=== PATIENT | female | born 1965 | race Caucasian/White ===

== ENCOUNTER → 2016-12-10 | Outpatient (CLI) | payer OTHER | LOC: MC.RAD 13:19 | DX: M25.562 Pain in left knee (principal); M79.662 Pain in left lower leg ==

== ENCOUNTER → 2017-01-13 | Outpatient (CLI) | payer OTHER | LOC: MC.RAD 13:09 | DX: Z12.31 Encounter for screening mammogram for malignant neoplasm of breast (principal) ==

== ENCOUNTER → 2018-01-26 | Outpatient (CLI) | payer OTHER | LOC: MC.RAD 14:50 | DX: Z12.31 Encounter for screening mammogram for malignant neoplasm of breast (principal) ==

== ENCOUNTER → 2019-02-15 | Outpatient (CLI) | payer OTHER | LOC: MC.RAD 13:30 | DX: Z12.31 Encounter for screening mammogram for malignant neoplasm of breast (principal) ==

== ENCOUNTER → 2020-02-17 | Outpatient (CLI) | payer OTHER | LOC: MC.RAD 15:17 | DX: Z12.31 Encounter for screening mammogram for malignant neoplasm of breast (principal) ==

== ENCOUNTER 2020-12-07 11:23 | Inpatient (IN) | payer OTHER ==
[~2020-12-07] VITALS: Ht 157.5 cm; Wt 51.6 kg
[2020-12-07] MEDS ORDERED: TESSALON PERLE200 MG PO (13:10)
[2020-12-07] MEDS ORDERED: ZOFRAN8 MG PO (13:10)
[2020-12-07] MEDS ORDERED: PEPCID 20MG TAB20 MG PO (13:11)
[2020-12-07] MEDS ORDERED: HCTZ12.5TAB PO (13:11)
[2020-12-07 14:25] LABS: BASO % 0.3 % (0.0-2.0); GRAN # 2.9 (1.4-6.5); GRAN % 75.6 % (42.2-75.2); HEMATOCRIT 39.4 % (37.0-47.0); HEMOGLOBIN 13.3 g/dl (12.5-16.0); LYMPH # 0.7 (1.2-3.4); LYMPH % 18.4 % (20.0-51.0); MEAN CELL VOLUME 86 fl (80.0-100.0); MEAN CORPUSCULAR HEMOGLOBIN 29 pg (27.0-31.0); MEAN CORPUSCULAR HGB CONC 34 g/dl (33.0-37.0); MEAN PLATELET VOLUME 9.4 fl (7.4-10.4); MONO # 0.2 (0.1-0.6); MONO % 5.2 % (1.7-9.3); PLATELET COUNT 165 K/mm3 (130-400); RED BLOOD COUNT 4.59 M/mm3 (4.10-5.30); REDCELL DISTRIBUTION WIDTH-CV 12.2 % (11.5-14.5)
[2020-12-07] MEDS ORDERED: PROMETHAZINE D118 ML PO (14:28)
[2020-12-07 14:40] LABS: ALBUMIN 3.9 gm/dL (3.5-5.0); BILIRUBIN,TOTAL 0.6 mg/dL (0.0-1.0); CALCIUM 9.2 mg/dL (8.4-10.2); CREATININE, serum 0.68 (0.52-1.25); POTASSIUM 3.6 mmol/L (3.4-5.0); TOTAL PROTEIN 6.8 gm/dL (6.4-8.2)
[2020-12-07 15:04] LABS: C-REACTIVE PROTEIN 5.7 mg/dL (0.0-0.9)
[2020-12-07 19:03] VITALS: BP 130/58; PULSE 89; TEMP 100.9
--- NOTE | 2020-12-07 20:00 | NUR ---
Assessment complete. Patient alert and oriented with no complaints of pain. Her temp is 100.9 at this time and 400 mg ibuprofen is administered. She is satting 88-90% on RA and is put on 1.5 liters 02 nasal cannula. She is now satting 93%. She states she has had diarrhea but is not nauseus at this time. Her chest xray and plan of care is reviewed. Comfort measures met and call light in reach.
[2020-12-08 01:08] VITALS: BP 135/60; PULSE 89; TEMP 101.2
[2020-12-08 04:00] VITALS: BP 112/57; PULSE 64; TEMP 97.4
[2020-12-08 07:15] LABS: GRAN # 1.5 (1.4-6.5); GRAN % 69.4 % (42.2-75.2); HEMOGLOBIN 11.8 g/dl (12.5-16.0); LYMPH # 0.5 (1.2-3.4); LYMPH % 23.9 % (20.0-51.0); MEAN CELL VOLUME 86 fl (80.0-100.0); MEAN CORPUSCULAR HEMOGLOBIN 29 pg (27.0-31.0); MEAN CORPUSCULAR HGB CONC 34 g/dl (33.0-37.0); MEAN PLATELET VOLUME 9.2 fl (7.4-10.4); MONO # 0.1 (0.1-0.6); MONO % 6.2 % (1.7-9.3); PLATELET COUNT 175 K/mm3 (130-400); RED BLOOD COUNT 4.05 M/mm3 (4.10-5.30); REDCELL DISTRIBUTION WIDTH-CV 12.2 % (11.5-14.5)
[2020-12-08 07:24] LABS: HEMATOCRIT 34.8 % (37.0-47.0)
[2020-12-08 07:26] LABS: ALBUMIN 3.1 gm/dL (3.5-5.0); BILIRUBIN,TOTAL 0.3 mg/dL (0.0-1.0); CALCIUM 8.7 mg/dL (8.4-10.2); CREATININE, serum 0.53 (0.52-1.25); POTASSIUM 3.5 mmol/L (3.4-5.0); TOTAL PROTEIN 5.5 gm/dL (6.4-8.2)
[2020-12-08 07:50] VITALS: BP 119/68; PULSE 61; TEMP 98.3
--- NOTE | 2020-12-08 09:45 | NUR ---
Patient resting in bed. Tolerated a light breakfast without nausea. Denies pain. Did request cough medication. given per orders. Spoke with ID . Orders obtained. Vss on room air, tele on. Will montior closely.
--- NOTE | 2020-12-08 10:11 | NUR ---
The patient is COVID positive. SW contacted the patient's room phone to discuss discharge plan. The patient lives alone in [place]. She states that her two daughters live nearby. She reports independence with ADLs and does not have any DME. The patient's PCP is Dr. Da Hatch and she receives her medications from the [facility] on [address] in . She reports no difficulties obtaining her meds. The patient does not have a DPOA-HC. She states that she is not and that she has two children: Trudy Newell (ph#[phone]) and Poppy. The patient plans to return home upon discharge. She is currently not requiring any oxygen. *Discharge plan: home*
[2020-12-08 11:15] VITALS: BP 118/65; PULSE 77; TEMP 98.6
--- NOTE | 2020-12-08 15:15 | NUR ---
Patient assisted back to bed, she sat up in chair for lunch. Had less of an appetite for lunch than she did for breakfast. She had requested cough medication, given per orders. Patient cough is frequent, but dry. She also reports some pain in her neck. Motrin per request. Patient provided with fresh linens on her bed. Offered shower & or warm wipes, no interest. She did stand at sink and brush her teeth. Up to bathroom independently. Miguel purvis.
[2020-12-08 17:29] VITALS: BP 124/67; PULSE 67; TEMP 98.4
--- NOTE | 2020-12-08 17:58 | NUR ---
Patient resting in bed. Having soup & crackers for dinner. Motrin assisted with pain. Her cough seems improved. Vitals remains stable. Tele on. Will monitor & report off to nightnurse
[2020-12-08 20:34] VITALS: BP 130/68; PULSE 96; TEMP 98.9
[2020-12-09 00:25] VITALS: BP 116/64; PULSE 69; TEMP 98.6
[2020-12-09 04:00] VITALS: BP 126/67; PULSE 76; TEMP 98.8
--- NOTE | 2020-12-09 04:06 | NUR ---
pt has been doing great but cough sometimes. pt sat at 91 on RA. mucinex was given. Will continue to monitor.
--- NOTE | 2020-12-09 06:45 | NUR ---
PT LAYING IN BED AT THIS TIME. DENIES ANY NEEDS AT THIS TIME. ORDERING BREAKFAST. CALL LIGHT WITHIN REACH, NO FURTHER CONCERNS.
[2020-12-09 09:00] VITALS: BP 104/53; PULSE 80; TEMP 98.3
[2020-12-09 16:04] VITALS: BP 131/73; PULSE 70; TEMP 98.2
--- NOTE | 2020-12-09 19:36 | NUR ---
PT HAD UNEVENTFUL DAY. NO CONCERNS. REMAINS ON 1L O2.
--- NOTE | 2020-12-09 21:36 | NUR ---
Pt is doing better. Pt looks more awake but still drowsy.will continue to monitor.
--- NOTE | 2020-12-09 21:44 | NUR ---
Pt is doing much better. Cough meds was provided. Pt is on 1 L of O2 sat at 92 . Will continue to monitor.
[2020-12-10 01:10] VITALS: BP 128/73; PULSE 67; TEMP 98.3
--- NOTE | 2020-12-10 02:05 | NUR ---
pt was on 1L of O2 sating at 91. Pt required more oxygen after desating to 76 on 1L after using the bothroom. Therefore pt is on 4 L of O2 sating at 92. Will continue to monitor.
[2020-12-10 04:00] VITALS: BP 128/56; PULSE 80; TEMP 98.2
--- NOTE | 2020-12-10 05:37 | NUR ---
PT HAS BEEN A LITTLE BIT BETTER BUT DOWN TO 3 L SATING AT 90.Will conitinue to monitor.
[2020-12-10 06:54] LABS: HEMOGLOBIN 10.9 g/dl (12.5-16.0); MEAN CELL VOLUME 89 fl (80.0-100.0); MEAN CORPUSCULAR HEMOGLOBIN 29 pg (27.0-31.0); MEAN CORPUSCULAR HGB CONC 32 g/dl (33.0-37.0); MEAN PLATELET VOLUME 9.3 fl (7.4-10.4); PLATELET COUNT 241 K/mm3 (130-400); RED BLOOD COUNT 3.76 M/mm3 (4.10-5.30); REDCELL DISTRIBUTION WIDTH-CV 13.1 % (11.5-14.5)
[2020-12-10 07:01] VITALS: BP 131/62; PULSE 75; TEMP 98
[2020-12-10 07:11] LABS: ALBUMIN 2.7 gm/dL (3.5-5.0); BILIRUBIN UNCONJUGATED 0.2 mg/dL (0.0-1.1); BILIRUBIN,TOTAL 0.2 mg/dL (0.0-1.0); CALCIUM 8.8 mg/dL (8.4-10.2); CREATININE, serum 0.5 (0.52-1.25); POTASSIUM 3.4 mmol/L (3.4-5.0)
[2020-12-10 07:20] LABS: HEMATOCRIT 33.6 % (37.0-47.0)
[2020-12-10 09:30] LABS: HYPOCHROMIA 1+; LYMPHOCYTE 9 % (20.0-51.0); NEUTROPHILS 87 % (42.0-75.2); PLATELET ESTIMATE NORMAL (NORMAL)
[2020-12-10 12:00] VITALS: BP 143/81; PULSE 67; TEMP 98
[2020-12-10 16:00] VITALS: BP 131/71; PULSE 75; TEMP 98.5
--- NOTE | 2020-12-10 18:52 | NUR ---
DURING BEDSIDE ROUNDING THE PATIENT WAS FEELING VERY SHORT OF BREATH. DURING ASSESSMENT THE PATIENT O2 SATS WERE 83%. WE INCREASED THE O2 NEEDS FROM 3L TO 4L AND THE PATIENT WAS UNABLE TO SAT ABOVE 86%. THE O2 WAS THEN INCREASED TO 6L AND THE PATIENT REMAINED AT 88-89%. RESPIRATORY THERAPY CAME TO THE ROOM WITH A HIGH FLOW NASAL CANNULA WELL A BUBBLER. THE PATIENT HAS REMAINED ON 8L TODAY. PT DID HAVE WHAT APPEARS TO BE BLOODY STOOLS. STOOL OCCULT HAS BEEN COLLECTED, AND IS PENDING. ID IS CONSULTED WELL PULMONARY. NO FURTHER CONCERNS AT THIS TIME.
[2020-12-10 20:00] VITALS: BP 134/71; PULSE 72; TEMP 98.4
[2020-12-10 20:07] LABS: HEMOGLOBIN 11.6 g/dl (12.5-16.0)
[2020-12-10 20:08] LABS: HEMATOCRIT 35.2 % (37.0-47.0)
--- NOTE | 2020-12-10 21:52 | NUR ---
ALERT AND OX4. DENIES SOA WHEN SETTING BUT WHEN UP AND MOVING O2 DROPS TO 85%. RETURNS TO 93% AFTER BACK TO BED. DENIES DIZZY OR CHEST PAIN. NO FEVER-VSS. PM MEDS GIVEN. POC DISCUSSED. IV FLUSHED. DAY SHIFT RN REPORT SEVERAL BLOODY STOOLS. OCCULT BLOOD SENT AND NEGATIVE. HEMOGLOBIN CHECKED AND IMPROVING. LOVENOX HELD PER ORDER. MONITORING.
[2020-12-11] VITALS (7 sets, daily range): BP systolic 118–154; BP diastolic 73–109; PULSE 67–104; TEMP 97.9–98.6
--- NOTE | 2020-12-11 04:30 | NUR ---
RESTED IN BED OVERNIGHT WITHOUT INCIDENT. REMAINS ON 8L HIGHFLOW. DESATS WITH STANDING TO COMMODE BUT CONT TO RETURN TO LOW 90S AFTER. NO REPORTS OF ANY STOOLS OVERNIGHT/NONE SEEN BY NURSE. ANTIBOTICS INFUSING THIS AM. NEEDS MET.
--- NOTE | 2020-12-11 05:44 | NUR ---
PT HAS SMALL LIQ BM THIS AM W BLOODY TINGE COLOR. DENIES LIGHTHEADED OR DIZZY. MONITORING
[2020-12-11 07:04] LABS: BASO % 0.2 % (0.0-2.0); GRAN # 4.6 (1.4-6.5); GRAN % 78.2 % (42.2-75.2); HEMOGLOBIN 11.4 g/dl (12.5-16.0); LYMPH # 0.6 (1.2-3.4); LYMPH % 9.6 % (20.0-51.0); MEAN CELL VOLUME 88 fl (80.0-100.0); MEAN CORPUSCULAR HEMOGLOBIN 29 pg (27.0-31.0); MEAN CORPUSCULAR HGB CONC 32 g/dl (33.0-37.0); MEAN PLATELET VOLUME 9.1 fl (7.4-10.4); MONO # 0.7 (0.1-0.6); PLATELET COUNT 270 K/mm3 (130-400)
[2020-12-11 07:05] LABS: HEMATOCRIT 35.2 % (37.0-47.0)
[2020-12-11 07:15] LABS: ALBUMIN 2.8 gm/dL (3.5-5.0); BILIRUBIN,TOTAL 0.4 mg/dL (0.0-1.0); CREATININE, serum 0.55 (0.52-1.25); POTASSIUM 3.4 mmol/L (3.4-5.0); TOTAL PROTEIN 5.1 gm/dL (6.4-8.2)
[2020-12-11 07:59] LABS: MAGNESIUM 2.4 mg/dL (1.6-2.3)
--- NOTE | 2020-12-11 09:09 | NUR ---
PT REMAINS DYSPNIC ON EXERTION. RT BUMPED PT UP TO 10L FOR RECOVERY AFTER TRANSFER FROM BED TO BEDSIDE COMMODE. AND THE PATIENT RECOVERED WITHIN 5 MINUTES. THIS RN REDUCED TO 8L FOR O2 AT 95%. PT RESTING O2 IS 93% ON 8L. WILL BUMP UP TO 10L FOR EXERTION. NO OTHER CONCERNS AT THIS TIME. CALL LIGHT WITHIN REACH.
--- NOTE | 2020-12-11 15:27 | NUR ---
Bone Char Operator spoke with RNFunmilayo who advised patient is now on 8 liters of oxygen. SW will continue to follow for oxygen needs.
--- NOTE | 2020-12-11 19:08 | NUR ---
Report given to DOMINIC Cobian.
--- NOTE | 2020-12-11 22:40 | NUR ---
Shift assessment completed. Patient A/O x4. Patient is currently on oxygen 5L via high flow NC. SPO2 92-94% on 5L high flow NC while at rest. Assisted patient to use bed-side commode per request. Patient reports she gets SOB and oxygen level desats when get up and moving around. Increased oxygen to 8L per patient request upon get up to use commode. Oxygen saturation remains 93-95% on 8L via high flow NC. Assisted patient back to bed and decreased oxygen level to 5L. Breathing even and unlabored while at rest. Patient denies N/V, diarrhea, headache, or dizziness. All scheduled meds given per SEP. PRN Cough meds given for non-productive dry cough. Call light within reach. Will continue to monitor.
[2020-12-12] VITALS (7 sets, daily range): BP systolic 131–154; BP diastolic 66–82; PULSE 63–98; TEMP 97.9–98.7
--- NOTE | 2020-12-12 07:31 | NUR ---
REPORT RCVD FROM DOMINIC CARDONA. PT IS CURRENTLY NAUSEATED, AND HAVING VERY LOOSE STOOLS. PT HAS REQUIRED MORE O2 DURING AMBULATION APPROXIMATELY 10L, BUT DOES RECOVER TO ONLY NEEDING 5L AT REST. PT REQUEST OF ZOFRAN. NO OTHER CONCERNS.
[2020-12-12 07:51] LABS: BASO % 0.1 % (0.0-2.0); GRAN # 6.4 (1.4-6.5); GRAN % 80.5 % (42.2-75.2); HEMATOCRIT 35.8 % (37.0-47.0); HEMOGLOBIN 11.7 g/dl (12.5-16.0); LYMPH # 0.7 (1.2-3.4); LYMPH % 9.2 % (20.0-51.0); MEAN CELL VOLUME 88 fl (80.0-100.0); MEAN CORPUSCULAR HEMOGLOBIN 29 pg (27.0-31.0); MEAN CORPUSCULAR HGB CONC 33 g/dl (33.0-37.0); MEAN PLATELET VOLUME 8.7 fl (7.4-10.4); MONO # 0.7 (0.1-0.6); MONO % 8.8 % (1.7-9.3); PLATELET COUNT 321 K/mm3 (130-400); RED BLOOD COUNT 4.08 M/mm3 (4.10-5.30); REDCELL DISTRIBUTION WIDTH-CV 12.8 % (11.5-14.5)
[2020-12-12 08:01] LABS: ALBUMIN 2.8 gm/dL (3.5-5.0); BILIRUBIN,TOTAL 0.6 mg/dL (0.0-1.0); CALCIUM 8.9 mg/dL (8.4-10.2); CREATININE, serum 0.54 (0.52-1.25); POTASSIUM 3.2 mmol/L (3.4-5.0); TOTAL PROTEIN 5.1 gm/dL (6.4-8.2)
--- NOTE | 2020-12-12 11:49 | NUR ---
PT HAVING DIFFICULTY WITH RECOVERY AFTER STANDING UP AND SITTING DOWN ON BEDSIDE COMMODE. THE PATIENT HAS A LOT OF ANXIETY ABOUT HER OXYGEN, AND WATCHES THE PULSE OXIMETER VERY CLOSELY. HER SATURATIONS INCREASE AND DECREASE VERY QUICKLY. THIS RN IS AWARE SHE KEEPS THE PULSE OXIMETER ON, AND CALLS IF IT DROPS BELOW 90%. THIS REDUCES THE AMOUNT OF ANXIETY REGARDING HER O2 AND HELPS KEEP HER CALM. PT IS HAVING DIARRHEA, AND IS AGREEABLE TO IMMODIUM AFTER A GASTROINTESTINAL PANEL IS COMPLETED. THERE ARE NO OTHER CONCERNS AT THIS TIME. CALL LIGHT IS WITHIN REACH, AND PERSONAL BELONGINGS ON THE BEDSIDE TABLE.
--- NOTE | 2020-12-12 22:36 | NUR ---
Shift assessment completed. Patient sitting up in bed upon enter the room. Pulse oxymeter in place on her finger. SPO2 94-95% on 4L via NC. Patient reports SOB upon exertion. VS stable. No acute respiratory distress noted while at rest this time. Patient denies N/V or diarrhea at this time. All scheduled meds given per SEP. K+ replaced per protocol. Call light within reach. Will continue to monitor.
[2020-12-13 00:40] LABS: CLOSTRIDIUM DIFF A/B NEG; CLOSTRIDIUM DIFF A/B INTERP No C.diff present
[2020-12-13 04:00] VITALS: BP 111/74; PULSE 72; TEMP 98.9
--- NOTE | 2020-12-13 06:22 | NUR ---
Patient remains on 4L oxygen over the night. SPO2 stays above 92% on 4L throughout the night. Call light within reach.
[2020-12-13 06:47] LABS: BASO % 0.1 % (0.0-2.0); GRAN # 6.9 (1.4-6.5); GRAN % 82.2 % (42.2-75.2); HEMOGLOBIN 11.3 g/dl (12.5-16.0); LYMPH # 0.6 (1.2-3.4); LYMPH % 7.2 % (20.0-51.0); MEAN CELL VOLUME 88 fl (80.0-100.0); MEAN CORPUSCULAR HEMOGLOBIN 30 pg (27.0-31.0); MEAN CORPUSCULAR HGB CONC 33 g/dl (33.0-37.0); MEAN PLATELET VOLUME 9.2 fl (7.4-10.4); MONO # 0.8 (0.1-0.6); MONO % 9.7 % (1.7-9.3); PLATELET COUNT 348 K/mm3 (130-400); RED BLOOD COUNT 3.83 M/mm3 (4.10-5.30); REDCELL DISTRIBUTION WIDTH-CV 12.9 % (11.5-14.5)
[2020-12-13 06:49] LABS: HEMATOCRIT 33.8 % (37.0-47.0)
[2020-12-13 07:06] LABS: ALBUMIN 2.5 gm/dL (3.5-5.0); BILIRUBIN,TOTAL 0.6 mg/dL (0.0-1.0); CALCIUM 8.6 mg/dL (8.4-10.2); CREATININE, serum 0.52 (0.52-1.25); POTASSIUM 3.9 mmol/L (3.4-5.0); TOTAL PROTEIN 4.8 gm/dL (6.4-8.2)
--- NOTE | 2020-12-13 07:15 | NUR ---
Patient resting in bed at this time. O2 running at 4L. No signs of pain, discomfort, SOA, or futher needs at this time. Will continue to monitor. Call light in reach.
[2020-12-13 07:26] VITALS: BP 135/75; PULSE 81; TEMP 98.3
--- NOTE | 2020-12-13 11:14 | NUR ---
Scheduled medications given, assessment preformed. Patient is currently requiring 5L of O2 and is able to maintain a saturation of 90-92%. Upon exertion, saturation drops to 85%. Patient is currenlty getting a CT of her chest done to rule out a PE. PRN Motrin given for back pain rated a 7/10 that is aggravated by coughing. Dry cough present. +1 edema noted on BLE. No other concerns noted. Will continue to monitor.
[2020-12-13 11:42] VITALS: BP 128/65; PULSE 102; TEMP 98.7
--- NOTE | 2020-12-13 16:14 | NUR ---
The hospitalist notified AMILCAR that the patient is continuing to have high oxygen needs. The hospitalist and railroad signal operator are recommending [facility], if her oxygen needs do not improve. The hospitalist discussed [facility] with the patient and the patient stated that she would want to avoid going to [place] for [facility]. SW then contacted the patient to follow up on their recommendation. The patient reports that she does not want to go to [place]. The patient's insurance is [employer]. AMILCAR discussed the possible option of IPR for continued care. The patient reports that she does not want to be here that long and is planning on staying with her daughter, Poppy, when she discharges. AMILCAR discussed home health services. The patient declined home health. AMILCAR updated the hospitalist. If the patient's oxygen needs do not improve, [facility] may need to be discussed again. SW to continue to follow.
[2020-12-13 16:50] VITALS: BP 146/69; PULSE 71; TEMP 98.6
--- NOTE | 2020-12-13 18:30 | NUR ---
Patient has had an ok day. CT to the chest was negative for PE. Patient is still requiring 5 L via nasal cannula. Sats continue to drop into the high 80's upon exertion. Patient does not C/O any pain, Discomfort, or futher needs at this time. Will continue to monitor. Call light in reach.
[2020-12-13 20:14] VITALS: BP 141/68; PULSE 88; TEMP 98.4
--- NOTE | 2020-12-13 21:15 | NUR ---
Awake, alert, oriented x 4, able to make needs known, remains in contract/droplet precautions, telemetry in use, VS stable, tolerating general diet, encouraging po fluid intake. Denies pain.
[2020-12-14 01:24] VITALS: BP 139/67; PULSE 82; TEMP 98.7
[2020-12-14 05:13] VITALS: BP 136/85; PULSE 64; TEMP 98.8
--- NOTE | 2020-12-14 06:58 | NUR ---
Patient resting in bed at this time. O2 running at 5L via nasal cannula. Patient denies any pain, discomfort, SOA, or further needs at this time. Will continue to monitor. Call light in reach.
[2020-12-14 08:01] LABS: HEMOGLOBIN 11.5 g/dl (12.5-16.0); MEAN CELL VOLUME 87 fl (80.0-100.0); MEAN CORPUSCULAR HEMOGLOBIN 29 pg (27.0-31.0); MEAN CORPUSCULAR HGB CONC 33 g/dl (33.0-37.0); PLATELET COUNT 397 K/mm3 (130-400); RED BLOOD COUNT 3.96 M/mm3 (4.10-5.30); REDCELL DISTRIBUTION WIDTH-CV 12.8 % (11.5-14.5)
[2020-12-14 08:04] LABS: HEMATOCRIT 34.6 % (37.0-47.0)
[2020-12-14 08:16] LABS: CALCIUM 8.8 mg/dL (8.4-10.2); CREATININE, serum 0.52 (0.52-1.25); POTASSIUM 3.8 mmol/L (3.4-5.0)
[2020-12-14 08:25] VITALS: BP 137/73; PULSE 71; TEMP 98.3
--- NOTE | 2020-12-14 09:22 | NUR ---
Scheduled medications given, shift assessment preformed. VSS. Patient continues to be on 5L of O2, and has been SATing 90-92%. Upon exertion, patient has not been dropping below 90%. +1 foot swelling noted bilaterally. Patient denies any chest pain, SOA while resting, discomfort, or futher needs at this time. Will continue to monitor. Call light in reach.
[2020-12-14 11:11] VITALS: BP 125/69; PULSE 76; TEMP 97.6
[2020-12-14 17:46] VITALS: BP 145/86; PULSE 70; TEMP 98.4
--- NOTE | 2020-12-14 19:00 | NUR ---
Patient has had a good day. Patient is currently on 4L of O2. Has been able to ambulate to the restroom independently this shift. Patient given motrin earlier in shift for chronic back pain. Patient stated that this has helped. Patient denies any further pain, discomfort, SOA, or futher needs at this time. Call light in reach. Report given to DOMINIC Land.
[2020-12-14 22:00] VITALS: BP 121/64; PULSE 77; TEMP 98.8
[2020-12-15] VITALS (7 sets, daily range): BP systolic 112–152; BP diastolic 53–84; PULSE 58–94; TEMP 97.6–98.8
--- NOTE | 2020-12-15 04:05 | NUR ---
Patient rested comfortably throughout night, denies pain, O2@ 4L per NC, patient getting up to go to bathroom and encouraging movement, updated on plan of care. verbalized understanding.
--- NOTE | 2020-12-15 07:13 | NUR ---
Patient sitting in bed resting at this time. O2 was reading 88% on 4L, titrated it up to 5L, patient in now SATing at 95%. Patient denies any pain, discomfort, or further needs at this time. Will continue to monitor. Call light in reach.
[2020-12-15 08:44] LABS: MAGNESIUM 2.1 mg/dL (1.6-2.3); POTASSIUM 4.1 mmol/L (3.4-5.0)
--- NOTE | 2020-12-15 09:30 | NUR ---
Scheduled medications given, shift assessment preformed. Patient desated to 82% upon ambulation to the restroom. C/O becoming dizzy. Patient sat down on edge of bed and instructed to take deep breaths in through her nose. Was able to recover within a minutes time. O2 titrated to 5L. Patient is resting in bed at this time. Denies any pain, discomfort, or any further needs at this time. Will continue to monitor. Call light in reach.
--- NOTE | 2020-12-15 13:27 | NUR ---
I called pt on phone with Maria Victoria AMILCAR to discuss DC plans. Asked pt if she was willing to consider IPR/[facility] due to continued O2 needs and need for PT. "I need to do whatever is needed to get well." Pt agreed to let Maria Victoria submit applications for IPR/[facility]. She prefers to stay here in town at IPR. Pt voiced understanding of need for further care. Answered all of pt's questions and she voiced understanding. Maria Victoria will follow up with discharge needs.
--- NOTE | 2020-12-15 15:05 | NUR ---
Wool Carder and RN-Foreign Student Adviser contacted patient to review discharge plan. Patient states she now feels like she likely could not return straight home upon discharge. SW advised patient that her current oxygen needs could not be met at home after SW had checked with [facility]. Patient is agreeable to have referrals sent to [facility] and [facility] in [place], however states that she really prefers to stay here. SW contacted both DEVORAH Junior Director and Clara Olea Clinical Liason and gave referrals. SW will continue to follow. Discharge Plan: Awaiting screens from [facility] and [facility]
--- NOTE | 2020-12-15 18:00 | NUR ---
Patient has had an ok day. PRN motrin given earlier in shift for chronic back pain rated a 3/10. Patient says that this helps. Patient continues to need 5L of 02. Patient denies any futher pain, discomfort, or futher needs at this time. Report given to DOMINIC Santa. Call light in reach.
--- NOTE | 2020-12-15 20:48 | NUR ---
Patient is wake, akert and oriented. She is resting in bed without any complains. She is on 5L nasal cannula. Denies any SOB or pain. She took her pills good and she is expecting that she will be in IPR on Friday otherwise she dont have issues. Call lights is within reach. Continue to monitor.
[2020-12-16 04:32] VITALS: BP 122/66; PULSE 64; TEMP 97.5
--- NOTE | 2020-12-16 08:25 | NUR ---
[place] and alert upon entry to room, no C/O pain at this time, Pt currently on 5 LPM O2. Shift assessments complete, left Pt call light in reach, bed in lowest position.
[2020-12-16 08:57] VITALS: BP 116/62; PULSE 104; TEMP 98.1
[2020-12-16 12:38] VITALS: BP 132/71; PULSE 80; TEMP 98.5
[2020-12-16 17:44] VITALS: BP 126/64; PULSE 77; TEMP 98.3
--- NOTE | 2020-12-16 20:28 | NUR ---
Patient is awake, alert, oriented and resting in bed. She is upset because she didn't get her tray. She said that she called dietary around 1700 and it didn't come. She just ate sandwich tray instead and she is not happy with that. Otherwise she denies any pain or SOB.
[2020-12-17 00:35] VITALS: BP 127/67; PULSE 85; TEMP 98.9
[2020-12-17 05:44] VITALS: BP 140/70; PULSE 67; TEMP 98.8
[2020-12-17 08:00] VITALS: BP 115/61; BP 116/61; PULSE 79; PULSE 80; TEMP 97.5; TEMP 98.4
--- NOTE | 2020-12-17 08:01 | NUR ---
Pt awake and alert this morning. Shift assessments complete, left Pt call light in reach, bed in lowest position.
[2020-12-17 12:39] VITALS: BP 120/70; PULSE 84; TEMP 98.3
[2020-12-17 16:51] VITALS: BP 117/60; PULSE 98; TEMP 98.3
[2020-12-17 20:56] VITALS: BP 101/56; PULSE 117; TEMP 99.1
--- NOTE | 2020-12-17 20:57 | NUR ---
Patient sitting up in bed upon enter the room. Shift assessment completed. Patient currently on 5L via NC. Denies SOB or dyspnea while at rest. Patient reports she gets SOB and oxygen level desats whenever she gets up and ambulate to the bathroom. Patient reports she had lots of coughing earlier and it hurts her back. But right now feeling a little better. All scheduled meds given per SEP. Assisted patient to go to the bathroom. SPO2 drops to 87% upon exertion but come back up to 90% after a few minutes of resting in bed. Call light within reach. Patient denies further needs at this time.
[2020-12-18 00:55] VITALS: BP 112/51; PULSE 92; TEMP 99.8
[2020-12-18 05:52] VITALS: BP 124/61; PULSE 87; TEMP 98.3
--- NOTE | 2020-12-18 07:47 | NUR ---
Pt awake and alert upon entry to room, has C/O pain in lower back, medications given. Shift assessments complete, left Pt call light in reach, bed in lowest position.
[2020-12-18 09:00] VITALS: BP 108/66; PULSE 88; TEMP 98.2
[2020-12-18 12:55] VITALS: BP 109/58; PULSE 96; TEMP 99
--- NOTE | 2020-12-18 13:25 | NUR ---
Cnc Machinist 2Nd Shift faxed clinical updates to Vesta at [facility] who advised patient will likely not meet criteria for LTACH. SW spoke with Sandi, IPR Director who has submitted to patient's insurance for authorization. Discharge Plan: Awaiting insurance auth for IPR
[2020-12-18 16:45] VITALS: BP 120/72; PULSE 112; TEMP 100
[2020-12-18 21:25] VITALS: BP 133/67; PULSE 104; TEMP 98.9
--- NOTE | 2020-12-18 22:27 | NUR ---
Shift assessment completed. Patient A/Ox4. Patient denies any pain or discomfort. Denies SOB or dyspnea while at rest. Patient currently on 5L via HFNC. Breathing even and unlabored. Patient reports feeling better today but still has some SOB upon exertion. Non-productive occasional cough noted. PRN cough meds given. All scheduled meds given per SEP. Call light within reach. Patient denies any needs at this time.
[2020-12-19 01:24] VITALS: BP 118/53; PULSE 92; TEMP 99.1
[2020-12-19 05:32] VITALS: BP 122/69; PULSE 88; TEMP 98.6
--- NOTE | 2020-12-19 05:49 | NUR ---
Patient slept well over the night. SPO2 maintained 94-96% on 5L throughout the night. No acute respiratory distress noted. Adjusted oxygen level to 4L at 05:45 am and stayed in the room for 5 min to monitor the oxygen level. SPO2 remains 94-95% on 4L via oxymask. Call light within reach. Will continue to monitor.
[2020-12-19 08:00] VITALS: BP 117/72; PULSE 99; TEMP 99.3
--- NOTE | 2020-12-19 08:22 | NUR ---
Pt awake and alert upon entry to room, has C/O pin in lower back. Shift assessments complete, left Pt call light in reach, bed in lowest position.
[2020-12-19 11:11] VITALS: BP 118/68; PULSE 85; TEMP 98.1
[2020-12-19 16:09] VITALS: BP 117/77; PULSE 95; TEMP 98.5
[2020-12-19 19:39] VITALS: BP 122/67; PULSE 110; TEMP 98.7
--- NOTE | 2020-12-19 20:34 | NUR ---
Awake, alert, oriented x 4, anxious about oxygen saturation, maintaining 93-94% SPO2 on 3.5L, uses call kraus appropriately, denies pain, SHOB noted on exertion, will continue to monitor.
[2020-12-20] VITALS (7 sets, daily range): BP systolic 111–119; BP diastolic 60–73; PULSE 87–105; TEMP 98.1–98.8
[2020-12-20 05:59] LABS: BASO % 0.4 % (0.0-2.0); EOS % 0.8 % (0-4.0); GRAN # 3.8 (1.4-6.5); HEMATOCRIT 33.6 % (37.0-47.0); HEMOGLOBIN 11.1 g/dl (12.5-16.0); LYMPH # 0.8 (1.2-3.4); LYMPH % 14.3 % (20.0-51.0); MEAN CELL VOLUME 91 fl (80.0-100.0); MEAN CORPUSCULAR HEMOGLOBIN 30 pg (27.0-31.0); MEAN CORPUSCULAR HGB CONC 33 g/dl (33.0-37.0); MEAN PLATELET VOLUME 9.3 fl (7.4-10.4); MONO # 0.6 (0.1-0.6); MONO % 10.5 % (1.7-9.3); PLATELET COUNT 380 K/mm3 (130-400); REDCELL DISTRIBUTION WIDTH-CV 12.8 % (11.5-14.5)
[2020-12-20 06:10] LABS: CALCIUM 9.3 mg/dL (8.4-10.2); CREATININE, serum 0.72 (0.52-1.25); POTASSIUM 4.1 mmol/L (3.4-5.0)
--- NOTE | 2020-12-20 16:18 | NUR ---
Desk Attendant spoke with Sandi, IPR Director who advised she has followed up with insurance and is still awaiting authorization. SW spoke with Hospitalist who advised patient is still requiring at least 5 liters of oxygen with ambulation.
[2020-12-21 04:17] VITALS: BP 111/57; PULSE 88; TEMP 97.9
[2020-12-21 06:57] LABS: CALCIUM 9.1 mg/dL (8.4-10.2); CREATININE, serum 0.66 (0.52-1.25)
[2020-12-21 06:58] LABS: BASO % 0.2 % (0.0-2.0); EOS # 0.1 (0.0-0.7); EOS % 1.1 % (0-4.0); GRAN # 3.9 (1.4-6.5); GRAN % 70.4 % (42.2-75.2); HEMOGLOBIN 10.7 g/dl (12.5-16.0); LYMPH # 0.9 (1.2-3.4); LYMPH % 15.6 % (20.0-51.0); MEAN CELL VOLUME 90 fl (80.0-100.0); MEAN CORPUSCULAR HEMOGLOBIN 29 pg (27.0-31.0); MEAN CORPUSCULAR HGB CONC 33 g/dl (33.0-37.0); MEAN PLATELET VOLUME 9.3 fl (7.4-10.4); MONO # 0.7 (0.1-0.6); MONO % 11.8 % (1.7-9.3); PLATELET COUNT 375 K/mm3 (130-400); RED BLOOD COUNT 3.67 M/mm3 (4.10-5.30); REDCELL DISTRIBUTION WIDTH-CV 12.5 % (11.5-14.5)
[2020-12-21 06:59] LABS: HEMATOCRIT 32.9 % (37.0-47.0)
[2020-12-21 09:01] VITALS: BP 105/57; PULSE 96; TEMP 98.2
--- NOTE | 2020-12-21 09:20 | NUR ---
Patient received a letter from her insurance and requested to talk with someone about it. I was able to see the letter and it stated the previous visit this month was deemed medically necessary and the letter was just notifying her of that determination. We also discussed discharge plans for this stay. Patient plans to stay with her daughter d/t her home layout not being conducive for her oxygen needs. Patient understands that insurance has been notified of need for post-acute rehab and that IPR is pending. We also discussed that other options exist, like home health. Patient expressed concern about how she would shower and I was able to reassure her that she can wear her oxygen if need be as water doesn't hurt the tubing and that if she has certain services they can help her with that as well. Patient verbalized that her questions were answered and I offered our assistance if anything else were to come up.
[2020-12-21 11:51] VITALS: BP 107/62; PULSE 95; TEMP 98.2
--- NOTE | 2020-12-21 12:41 | NUR ---
Stringing Machine Tender spoke with Sandi IPR Director who advised that patient's insurance declined authorization for IPR. AMILCAR attended clinical rounds with the team. SW discussed other options with patient including SNF and Home Health. Christiano does not want to go to SNF. Patient would like to go home with Home Health services and plans to discharge home with her daughter, Poppy upon discharge. Poppy is at bedside and advised she lives in [place] at [address], [place]. Poppy states her apartment is on the first floor and has no stairs. Poppy states between her and other family members, patient will have support 27/01 available. SW provided Medicare.gov list of agencies that serve [place] and patient selected [facility]. SW also reviewed oxygen providers and patient selected [facility]. AMILCAR collaborated with hospitalist who advised they will do an exercise oximetry tomorrow and plan for discharge. AMILCAR contacted Jaret at [facility] and faxed referral. Discharge Plan: Home with family and [facility]. Patient will also require home oxygen at discharge and would like to use [facility].
[2020-12-21 15:56] VITALS: BP 115/72; PULSE 88; TEMP 98.5
[2020-12-21 19:54] VITALS: BP 100/84; PULSE 111; TEMP 98
[2020-12-21 23:37] VITALS: BP 109/65; PULSE 95; TEMP 98.5
[2020-12-22 03:55] VITALS: BP 113/65; PULSE 91; TEMP 98.7
--- NOTE | 2020-12-22 07:00 | NUR ---
PT RECEIVED THIS A.M., NO S/S OF DISTRESS NOTED. PT VOICE NO CONCERNS. PT DENIES PAIN O2 BEING ADMINISTERED VIA N/C. COMFORT MEASURES IN PLACE. WILL CONTINUE TO MONITOR.
[2020-12-22 08:20] VITALS: BP 107/71; PULSE 103; TEMP 98.4
[2020-12-22] MEDS ORDERED: RT Albuterol HFA MDI IH (10:16)
[2020-12-22 12:10] VITALS: BP 105/62; PULSE 100; TEMP 97.9
--- NOTE | 2020-12-22 15:01 | NUR ---
Brattice Builder attended clinical rounds with the team and patient to discharge to her daughter, Poppy's apartment today. SW met with patient to review discharge plan. Patient confirms she wants to use [facility] for home oxygen. SW advised patient that [facility] has accepted and will be in contact with her. Patient's daughter, Trudy (ph#[phone]) to hot die picker patient today after she gets off work at 1400. SW contacted Trudy to review discharge plan. Trudy advised she will hot die picker tanks for patient after work at [facility] to get patient home on before picking up patient to go home. Trudy also advised she is a CHIEF METEOROLOGIST and feels comfortable assisting patient with home oxygen set up needs. AMILCAR provided Trudy with contact information for [facility]. AMILCAR contacted Shelli at [facility] and faxed referral/oxygen orders. Shelli confirmed they have processed patient and her supplies are ready for hot die picker. AMILCAR then contacted Jaret at [facility] to notify him that patient to DC home today. AMILCAR provided Jaret with Poppy's address, which is where patient will DC to. Jaret advised he is working with patient's insurance to obtain authorization for services. AMILCAR faxed discharge orders and summary. AMILCAR also contacted patient's daughter, Poppy to provide update on discharge plan. Discharge Plan: Home with [facility] and home oxygen.
--- NOTE | 2020-12-22 15:41 | NUR ---
PT IS BEING D/C'D AT THIS TIME. D/C INSTRUCTIONS REVIEWED WITH PT AND SHE VOICES NO CONCERN. IV ACCESS REMOVED. PT TOOK ALL HER BELONGINGS.
== END 2020-12-22 16:15 | disposition home health service (06) | DRG 177 ==
LOC: COL.ER 11:23 → MEDICAL 13:07
PROVIDERS: Family Medicine; Hospitalist; Nurse Practitioner Family; Physician Assistant; ADMIT Student in an Organized Health Care Education/Training Program
PROC: XW033E5 Introduction of Remdesivir Anti-infective into Peripheral Vein, Percutaneous Approach, New Technology Group 5 (ICD-10-PCS; principal; 2020-12-08)
DX: U07.1 COVID-19 (principal); J12.82 Pneumonia due to coronavirus disease 2019; J96.01 Acute respiratory failure with hypoxia; E87.1 Hypo-osmolality and hyponatremia; K92.1 Melena; I10 Essential (primary) hypertension; R19.7 Diarrhea, unspecified; R79.89 Other specified abnormal findings of blood chemistry; E87.8 Other disorders of electrolyte and fluid balance, not elsewhere classified; E87.6 Hypokalemia
CPT/HCPCS: OP; 99231-AI; 99232-AI; 99233-AI; 99239; G0378; J0456; J0696; J1650; J2405; J2543; J7030; J7050; J7120; J8540; Q9967

== ENCOUNTER → 2021-03-26 | Outpatient (CLI) | payer OTHER ==
[~2021-03-26] MED LIST: HCTZ12.5TAB PO; PEPCID 20MG TAB20 MG PO; PROMETHAZINE D118 ML PO; RT Albuterol HFA MDI IH; TESSALON PERLE200 MG PO; ZOFRAN8 MG PO
== END ==
LOC: MC.RAD 14:25
DX: Z12.31 Encounter for screening mammogram for malignant neoplasm of breast (principal)

== ENCOUNTER → 2022-05-14 | Outpatient (CLI) | payer OTHER | LOC: MC.RAD 16:08 | DX: Z12.31 Encounter for screening mammogram for malignant neoplasm of breast (principal) ==

== ENCOUNTER → 2023-06-05 | Outpatient (CLI) | payer OTHER | LOC: CANSCHCLI → MC.RAD 16:20 | DX: Z12.31 Encounter for screening mammogram for malignant neoplasm of breast (principal) ==

== ENCOUNTER → 2024-06-09 | Outpatient (CLI) | payer OTHER | LOC: MC.RAD 08:00 | DX: Z12.31 Encounter for screening mammogram for malignant neoplasm of breast (principal); Z12.4 Encounter for screening for malignant neoplasm of cervix ==